=== PATIENT | male | born 1960 | race Caucasian/White ===

== ENCOUNTER → 2017-12-16 09:57 | Outpatient (CLI) | payer BC, SELFPAY ==
--- NOTE | 2017-12-16 10:05 | XR_ITS ---
XR shoulder LT min 2V HISTORY: ITS.REASON: LEFT SHOULDER PAIN ORDERING PHYSICIAN: Cullen Tellez MD PATIENT AGE: 57 years Comparison: None FINDINGS: No fracture or dislocation. No lytic or blastic change. There is normal mineralization. The joint spaces are well-preserved. No significant degenerative/arthritic changes. No erosive changes evident. IMPRESSION: Negative, no acute finding
== END ==
PROVIDERS: PCP Family Medicine; Visit Provider Family Medicine
DX: M25.512 Pain in left shoulder (principal)
CPT/HCPCS: 73030

== ENCOUNTER → 2018-04-14 11:04 | Outpatient (CLI) | payer BC, SELFPAY ==
--- NOTE | 2018-04-14 11:06 | MR_ITS ---
MR shoulder LT wo con HISTORY:Left shoulder pain with limited range of motion ITS.REASON: LEFT ANTERIOR SHOUDLER PAIN, INJURY OF LT ROTATOR CUFF ORDERING PHYSICIAN: Cullen Tellez MD PATIENT AGE: 57 years Comparison: 12/16/2017 TECHNIQUE: Standard multiplanar multiecho sequences are performed without contrast. FINDINGS: There is mild acromioclavicular hypertrophy with mild spurring of the AC joint and minimal spurring along the inferior aspect of the acromium which may result in impingement symptomatology. There is thickening of the supraspinatus tendon with increased T2 signal consistent with tendinopathy/tendinosis. There is minimal amount fluid in the subdeltoid region. No evidence of tear of the supraspinatus tendon. There is a small tear along the anterior aspect of infraspinatus tendon distally at the insertion on the greater tuberosity. This does not represent a complete tear and is only along the anterior edge of the infraspinatus tendon and could even be due to partial volume averaging artifact from small fluid in this area. The subscapularis tendon is slightly thickened suggesting tendinopathy/tendinosis. The teres minor tendon is unremarkable. No obvious labral tear. Bicipital tendon is in place. Cortical irregularity involves the humeral head at the greater tuberosity region which may be seen with chronic rotator cuff disease. No fracture or dislocation. IMPRESSION: 1. Tendinopathy/tendinosis of the supraspinatus, infraspinatus, and subscapularis tendons with mild acromioclavicular arthropathy which may result in impingement symptomatology. 2. Incomplete tear of the anterior aspect of the infraspinatus tendon distally versus partial volume averaging artifact from small amount fluid.
== END ==
PROVIDERS: Family Provider Family Medicine; PCP Family Medicine; Visit Provider Family Medicine
DX: M25.512 Pain in left shoulder (principal); M75.22 Bicipital tendinitis, left shoulder; S46.002D Unspecified injury of muscle(s) and tendon(s) of the rotator cuff of left shoulder, subsequent encounter
CPT/HCPCS: 73221